=== PATIENT | male | born 1985 | race Hispanic/Latino ===

== ENCOUNTER → 2020-01-11 | Day surgery (SDC) | payer OTHER ==
[~2020-01-11] MED LIST: ADVIL100 M1 PO; AMOXICILLIN250 MG PO; FENTANYL CITRATE/PF 100MCG/2 ML INJ ONE; HYOSCYAMINE 0.125 MG TAB ONE; MIDAZOLAM HCL 2 MG/2 ML VIAL ONE; PROPOFOL IV EMULSION 10 MG/ML 20 ML VIAL ONE
--- OUTSIDE RECORDS SUMMARY | 2020-01-11 09:00 | XMS REPORT ---
Author Author [facility] Address Unknown Phone Unavailable Care Team Providers Care Switch Operator Name Role Phone Unavailable Unavailable Payers Payer Name Policy Type Policy Number Effective Date Expiration Date Problems This patient has no known problems. Allergies, Adverse Reactions, Alerts Allergy Name Allergy Type Status Severity Reaction(s) Onset Date Inactive Date Treating Clinician Comments No Known Allergies DA Active U 2020-01-11 00:00:00 Medications This patient has no known medications.
[2020-01-11 13:30] VITALS: BP 110/74
--- NOTE | 2020-01-11 13:30 | Operative Report ---
DATE OF PROCEDURE: 01/11/2020 SURGEON: Severiano Prescott MD INDICATION FOR COLONOSCOPY: Rectal bleeding. MEDICATIONS: The patient was done under MAC please see anesthesiologist's note. PROCEDURE IN DETAIL: With the patient in left lateral decubitus position, a flexible fiberoptic Olympus colonoscope was inserted into the rectum with ease and advanced all the way to the cecum. It was then withdrawn slowly. Mucosa overlying the cecum, ascending colon, transverse, descending, sigmoid, and rectum appeared to be within normal limits. On retroflexed position, moderate-sized internal hemorrhoids were noted. The scope was then straightened out, it was subsequently withdrawn, and on the way out an anal fissure was noted at approximately 6 o'clock with the patient in the supine position. There was no active bleeding. The patient tolerated procedure well. IMPRESSION: 1. Internal hemorrhoids. 2. Anal fissure. PLAN: Initiate Anucort HC suppositories b.i.d. x10 days then p.r.n. A general surgical opinion with Dr. Herminio Solorzano. Severiano Prescott MD [facility] – [place]/[facility] /[id number] cc: Herminio Solorzano MD
== END | disposition home or self-care (01) ==
LOC: OR 08:58
PROVIDERS: ATTEND Internal Medicine Gastroenterology
DX: K62.5 Hemorrhage of anus and rectum (principal); K60.2 Anal fissure, unspecified; K64.8 Other hemorrhoids; R03.0 Elevated blood-pressure reading, without diagnosis of hypertension
CPT/HCPCS: 45378; J2250; J2704; J3010

== ENCOUNTER → 2021-02-28 | Day surgery (SDC) | payer SELFPAY ==
[2021-02-25 14:37] LABS: BASOPHILS % 0.7 % (0.0-1.0); EOSINOPHILS % 0.7 % (0.0-6.0); HEMATOCRIT 39.3 % (38.2-49.6); HEMOGLOBIN 13.2 g/dL (14.0-18.0); LYMPHOCYTES # (AUTO) 1.1 (1.0-3.2); LYMPHOCYTES % 26.6 % (18.0-39.1); MEAN CORPUSCULAR HEMOGLOBIN 30.1 pg (28-32); MEAN CORPUSCULAR HGB CONC 33.6 g/dL (31-35); MEAN CORPUSCULAR VOLUME 89.5 fL (81-99); MONOCYTES # (AUTO) 0.4 (0.2-0.8); MONOCYTES % 8.8 % (4.4-11.3); NEUTROPHILS # (AUTO) 2.7 (2.1-6.9); PLATELET COUNT 176 x10e3/uL (140-360); RED BLOOD COUNT 4.39 x10e6/uL (4.3-5.7); RED CELL DISTRIBUTION WIDTH 12.7 % (11.7-14.4)
[2021-02-25 14:54] LABS: ANION GAP 13.2 mmol/L (8-16); CALCIUM 9.3 mg/dL (8.4-10.2); CREATININE, SERUM 1.34 mg/dL (0.72-1.25); POTASSIUM 4.2 mmol/L (3.5-5.1)
[~2021-02-28] MED LIST changes: +BUPIVACAINE 0.25% 30ML SDV ONE; +DEXAMETHASONE SOD PHOS INJ 4 MG/ML VIAL ONE; -HYOSCYAMINE 0.125 MG TAB ONE; +KETOROLAC TROMETHAMINE 30 MG/ML VIAL ONE; +LIDOCAINE 1% W/EPINEPHRINE 20 ML VIAL ONE; +LIDOCAINE HCL 2% 30 ML TUBE ONE; +LIDOCAINE HCL 2% LOCAL INJ 5 ML SDV VIAL INJ ONE; +ONDANSETRON HCL INJ 2MG/ML 2ML 2 MG/ML VIAL ONE; +POVIDONE IODINE 0.05% 0.05 % ML PO ONE
[2021-02-28 14:28] VITALS: BP 120/76
== END | disposition home or self-care (01) ==
LOC: OR 10:02
PROVIDERS: ATTEND Surgery
CPT/HCPCS: 36415; 80048; 85025; J1100; J1885; J2001; J2250; J2405; J3010; U0002